=== PATIENT | male | born 1945 | race Caucasian/White ===

== ENCOUNTER 2018-05-31 08:39 | Observation (INO) | payer MEDICARE ==
--- NOTE | 2018-05-31 09:01 | ED ---
Abdominal Pain/Male - HPI Summary HPI Summary: A 72 y/o M presents to ED with c/o abd pain onset 00:00 this date. Associated sx : nausea/diarrhea, chills, weakness, fatigue. Denies vomiting, bloody stool, back pain, flank pain, groin pain, cough, rhinorrhea, CP, cough, myalgia. Pt thinks it may be a kidney stone as the sx feel similar to his previous one. He goes to the pain clinic for his back for Tramadol injections and RFA. He had an annual physical in March 2018. 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 Pt states he was recently on a college campus in an elevator with someone who was coughing. - History of Current Complaint Chief Complaint: EDNauseaVomitDiarrh Stated Complaint: NAUSEA/DIARRHEA/CHILLS Time Seen by Provider: 05/31/18 08:58 Hx Obtained From: Patient, Family/Rn Patient Services - present Onset/Duration: Lasting Hours, Still Present Timing: Constant Severity Initially: Moderate Severity Currently: Moderate Pain Intensity: 6 Pain Scale Used: 0-10 Numeric Location: Diffuse Associated Signs And Symptoms: Positive: Nausea, Diarrhea, Other - pos: chills, weakness, fatigue. neg: flank pain, groin pain, myalgia. Negative: Fever, Cough , Chest Pain, Back Pain, Blood in Stool, Vomiting - Allergies/Home Medications Allergies/Adverse Reactions: Allergies Allergy/AdvReac Type Severity Reaction Status Date / Time No Known Allergies Allergy Verified 05/31/18 08:46 PMH/Surg Hx/FS Hx/Imm Hx Previously Healthy: No Endocrine/Hematology History: Denies: Hx Diabetes Cardiovascular History: Denies: Hx Hypertension, Hx Pacemaker/ICD History: Reports: Hx Kidney Stones - september 2015 Denies: Hx Renal Disease Musculoskeletal History: Reports: Hx Arthritis, Hx Back Problems Sensory History: Reports: Hx Contacts or Glasses - glasses Denies: Hx Hearing Aid Opthamlomology History: Reports: Hx Contacts or Glasses - glasses Neurological History: Reports: Other Neuro Impairments/Disorders - PAIN CLINIC PATIENT Psychiatric History: Denies: Hx Panic Disorder - Surgical History Surgery Procedure, Year, and Place: TONSILECTOMY. VASECTOMY. PLANTAR FASCIOTOMY Infectious Disease History: No Infectious Disease History: Denies: Traveled Outside the [place] in Last 30 Days - Family History Known Family History: Positive: Diabetes - COUSIN - TYPE I Negative: Cardiac Disease, Hypertension - Social History Occupation: Retired Lives: With Family Alcohol Use: Daily Alcohol Amount: 2 beer/wine/liquor Substance Use Type: Reports: None Smoking Status (MU): Never Smoked Tobacco Review of Systems Positive: Chills, Fatigue. Negative: Fever Negative: Erythema Negative: Sore Throat, Nasal Discharge Negative: Chest Pain Negative: Shortness Of Breath, Cough Positive: Abdominal Pain, Diarrhea, Nausea. Negative: Vomiting, Other - neg: bloody stool Negative: dysuria, flank pain, hematuria, other - neg: groin pain Negative: Myalgia, Edema, Other - neg: back pain Negative: Rash Neurological: Other - neg: dizziness Positive: Weakness All Other Systems Reviewed And Are Negative: Yes Physical Exam - Summary Physical Exam Summary: Constitutional: Well-developed, Well-nourished, Alert. (-) Distressed Skin: Warm, Dry HENT: Normocephalic; Atraumatic Eyes: Conjunctiva normal Neck: Musculoskeletal ROM normal neck. (-) JVD, (-) Stridor, (-) Tracheal deviation Cardio: Rhythm regular, rate normal, Heart sounds normal; Intact distal pulses; The pedal pulses are 2+ and symmetric. Radial pulses are 2+ and symmetric. (-) Murmur Pulmonary/Chest wall: Effort normal. (-) Respiratory distress, (-) Wheezes, (-) Rales Abd: Soft, (-) epigastric tenderness, (-) Distension, (-) Guarding, (-) Rebound Musculoskeletal: (-) Edema Lymph: (-) Cervical adenopathy Neuro: Alert, Oriented x3 Psych: Mood and affect Normal Triage Information Reviewed: Yes Vital Signs On Initial Exam: Initial Vitals Temp Pulse Resp BP Pulse Ox 97.6 F 73 19 140/82 98 05/31/18 08:42 05/31/18 08:42 05/31/18 08:42 05/31/18 08:42 05/31/18 08:42 Vital Signs Reviewed: Yes Diagnostics - Vital Signs Vital Signs Temp Pulse Resp BP Pulse Ox 05/31/18 08:56 66 136/77 97 05/31/18 08:42 97.6 F 73 19 140/82 98 - Laboratory Result Diagrams: 05/31/18 09:14 05/31/18 09:14 Lab Statement: Any lab studies that have been ordered have been reviewed, and results considered in the medical decision making process. - EKG 0906 Cardiac Rate: NL - 69 bpm EKG Rhythm: Sinus Rhythm Summary of EKG Findings: NO STEMI Re-Evaluation - Re-Evaluation 1 Re-Evaluation Time: 12:21 Change: Worse Comment: Pt is still complaining of nausea and abd pain described as cramping. Repeat abd exam found no tenderness. 2 Re-Evaluation Time: 13:40 Change: Unchanged Comment: Patient is still feeling nauseated and appears uncomfortable. Abd is still non-tender to palpation. Offered observation; will reassess in 20 minutes. 3 Re-Evaluation Time: 14:25 Change: Unchanged Comment: He is still nauseated and having abd cramping. He is interested in admission. Abdominal Pain Fem Course/Dx - Course Course Of Treatment: Pt is a 72 y/o M presenting with c/o abd pain onset 00:00 this date. Associated sx: nausea/diarrhea, chills, weakness, fatigue. Denies vomiting, bloody stool, back pain, flank pain, groin pain, cough, rhinorrhea, CP , cough, myalgia. Lab work is unremarkable except elevated glucose and BUN/C ratio. UA results show 2+ ketones ansd ascorbic acid present. After multiple re-evals, patient's nausea and abd cramping have not subsided. Consulted with Dr. Handley, hospitalist, who will admit patient. - Diagnoses Provider Diagnoses: Gastroenteritis, Intractable vomiting - Provider Notifications Discussed Care Of Patient With: Jw Handley - hospitalist Time Discussed With Above Provider: 14:53 Instructed by Provider To: Admit As Inpatient Discharge - Sign-Out/Discharge Documenting (check all that apply): Patient Departure - ADMIT Patient Received Moderate/Deep Sedation with Procedure: No - Discharge Plan Condition: Stable Disposition: ADMITTED TO [facility] Referrals: Ravin Chase MD [Medical Doctor] - Additional Instructions: Return to the emergency department for changing or worsening symptoms. - Attestation Statements Document Initiated by Scribe: Yes Documenting Scribe: So[facility]pakog [facility] Provider For Whom Scribe is Documenting (Include Credential): Dr. Edenilson Fang MD Scribe Attestation: I, Esme Rosario, scribed for Dr. Edenilson Fang MD on 05/31/18 at 1453. Status of Scribe Document: Ready
--- OUTSIDE RECORDS SUMMARY | 2018-05-31 09:07 | XMS REPORT | Continuity of Care Document ---
:1945 External Reference #:[id number] Author Name Fatimah Sy Care Team Providers Name Role Phone Fredis Garces MD Care Team Information [employer] Unavailable Brian Dow III, MD Primary Care Physician Unavailable Payers Type Date Identification Numbers Payment Provider Subscriber Policy Number: [id number] [employer] Marcelina Kendall Group Number: [id number] [id number] PayID: [id number] [place] [address] Advance Directives Description No Information Available Problems Date Description Provider Status Onset: 03/17/2017 Lumbar arthritis Ravin Chase M.D.,FACP Active Onset: 03/17/2017 Lumbago with sciatica Ravin Chase M.D.,FACP Active Onset: 03/17/2017 Macular drusen Ravin Chase M.D.,FACP Active Onset: 03/17/2017 Kidney stone Ravin Chase M.D.,FACP Active Onset: 03/17/2017 Acquired thrombocytopenia Ravin Chase M.D.,FACP Active Note: mild Onset: 03/29/2017 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.,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 Family History Date Family Member(s) Problem(s) Comments Father due to Pulmonary fibrosis () Mother due to Endometrial Cancer () - Age 69 Siblings 1 Siblings Healthy Age 73 Social History Type Date Description Comments Sex Unknown Marital Status Occupation Retired Tobacco Use Start: Unknown Never Smoked Cigarettes Smoking Status Reviewed: 05/03/18 Never Smoked Cigarettes ETOH Use 03/29/2017 Consumed 2 beers per day in the past Tobacco Use Start: Unknown Patient has never smoked Recreational Drug Use Denies Drug Use Allergies, Adverse Reactions, Alerts Description No Known Drug Allergies Medications Medication Date Status Form Strength Qnty SIG Indications Ordering Provider Vitamin B 08/28 Active Lozenges 250mcg 100un by mouth its every day Ajith Chase M.D.,FACP Shingrix 08/19 Active Suspension 50mcg 2unit 0.5 Rec s milliliters Ajith Chase, intramuscula M.DJcarlos,FACP r now and 2-3 months later repeat BD 3ML Luer-Siobhan 03/29 Active Misc 23G X 1" 10uni use monthly Syringe/23G X /2016 3 ML ts for B12 Ajith Chase, 1" M.D.,FACP Tramadol HCL 03/17 Active Tablets 50mg 42tab four times a s day as Ajith Chase, needed M.DJcarlos,FACP Areds Active 2 tabs daily Unknown /0000 Ibuprofen 00 Active Capsules 200mg as needed Unknown /0000 Cyanocobalamin 03/29 Hx Solution 1000mcg/M 10uni 1 L ts milliliters Ajith Chase, - intramuscula M.DJcarlos,FACP 08/28 r [id number] Diclofenac 00/ Hx Tablets DR 75mg daily Unknown Sodium /0000 - 03/17 Aspirin Adult [address] 81mg take one Unknown Low Strength /0000 tablet by - mouth daily. 03/17 Vitamin D3 Hx Capsules 4000Unit 1 by mouth Unknown Maximum /0000 every day Strength - 03/17 Medications Administered in Office Medication Date Status Form Strength Qnty SIG Indications Ordering Provider B-12 Injection Administered Injection Nurse Visit 018 [place] B-12 Injection Administered Injection Nurse Visit 018 [place] B-12 Injection Administered Injection Nurse Visit 018 [place] B12 Provided Administered Injection Nurse Visit By Patient 018 [place] B12 Provided Administered Injection Nurse Visit By Patient 018 [place] B12 Provided Administered Injection Nurse Visit By Patient 017 [place] Immunizations CPT Code Status Date Vaccine Reaction Lot # [id number] Given 02/13/2018 Influenza Virus Vaccine, Quadrivalent, Split, Preservative Free 42049 Given 01/25/2018 Zoster (Shingles) Vaccine (HZV), Recombinant, Subunit, Adjuvanted 33748 Given 08/28/2017 Zoster (Shingles) Vaccine (HZV), Recombinant, Subunit, Adjuvanted 17219 Given 03/17/2017 Influenza Virus Vaccine, Quadrivalent, Split, Preservative Free 99371 Given 03/17/2017 Pneumococcal Conjugate no reaction, pt [id number] Vaccine 13 Valent For tolerated well Intramuscular Use 17452 Given 08/08/2013 Pneumonia Vaccine 97701 Given 04/17/2012 Tetanus And Diptheria (Td) For Adult Use Preservative Free 53203 Given 03/17/2009 Zoster (Zostavax) Vital Signs Date Vital Result Comment 05/03/2018 2:29pm Height 69 inches 5'9" Weight 182.38 lb Heart Rate 72 /min BP Systolic Sitting 118 mmHg reg adult cuff left arm BP Diastolic Sitting 88 mmHg reg adult cuff left arm Respiratory Rate 16 /min O2 % BldC Oximetry 98 % at rest on room air BMI (Body Mass Index) 26.9 kg/m2 03/17/2017 10:39am Height 69 inches 5'9" Weight 182.00 lb Heart Rate 69 /min BP Systolic Sitting 122 mmHg BP Diastolic Sitting 70 mmHg Body Temperature 97.0 F O2 % BldC Oximetry 97 % BMI (Body Mass Index) 26.9 kg/m2 02/23/2016 11:29am Height 69 inches 5'9" Weight 178.00 lb Heart Rate 66 /min BP Systolic 110 mmHg BP Diastolic 76 mmHg Respiratory Rate 16 /min Body Temperature 97.7 F BMI (Body Mass Index) 26.3 kg/m2 Results Test Date Facility Test Result H/L Range Note Lipid Profile 04/25/2018 [facility] Triglycerides 77 mg/dL 1 (Trig/Chol/HDL) [address] [place] [address] [phone] Cholesterol 212 mg/dL 2 HDL Cholesterol 55.0 mg/dL 3 LDL Cholesterol 142 mg/dL 4 Laboratory test 04/25/2018 [facility] Vitamin B12 668 pg/mL N 180-914 [address] [place] [address] [phone] CBC Auto Diff 04/25/2018 [facility] White Blood 2.9 Low 3.5- 10.[address] Count 10^3/[place] [address] [phone] Red Blood Count 5.42 10^6/uL High 4.00-5.40 Hemoglobin 16.1 g/dL N 14.0-18.0 Hematocrit 48 % N 42-52 Mean Corpuscular Volume 88 fL N 80-94 Mean Corpuscular Hemoglobin 30 pg N 27-31 Mean Corpuscular HGB Conc 34 g/dL N 31-36 Red Cell Distribution Width 17 % High 10.5-15 Platelet Count 148 10^3/uL Low 150-450 Mean Platelet Volume 7.3 fL Low 7.4-10.4 Abs Neutrophils 1.3 10^3/uL Low 1.5-7.7 Abs Lymphocytes 0.8 10^3/uL Low 1.0-4.8 Abs Monocytes 0.3 10^3/uL N 0-0.8 Abs Eosinophils 0.3 10^3/uL N 0-0.6 Abs Basophils 0 10^3/uL N 0-0.2 Abs Nucleated RBC 0 10^3/uL Granulocyte % 46.6 % Lymphocyte % 27.8 % Monocyte % 12.0 % Eosinophil % 12.0 % Basophil % 1.6 % Nucleated Red Blood Cells % 0.2 Laboratory test 04/25/2018 [facility] Glucose 100 mg/dL N 70- [address] [place] [address] [phone] Laboratory test 02/01/2018 [facility] Surgical SEE RESULT 6 , [address] [place] [address] [phone] Occult 05/04/2017 Senior Web Developer In House Occult Blood - NEG Blood,Stool (3 Stool Spec) Lipid Profile 03/24/2017 [facility] Triglycerides 65 mg/dL 8 (Trig/Chol/HDL) [address] [place] [address] [phone] Cholesterol 206 mg/dL 9 HDL Cholesterol 50.9 mg/dL 10 LDL Cholesterol 142 mg/dL 11 CBC Auto 03/24/2017 [facility] White Blood 3.3 10^3/uL Low 3.5 -10.[address] [place] [address] [phone] Red Blood Count 4.84 10^6/uL N 4.0-5.4 Hemoglobin 13.3 g/dL Low 14.0-18.0 Hematocrit 40 % Low 42-52 Mean Corpuscular Volume 83 fL N 80-94 Mean Corpuscular Hemoglobin 28 pg N 27-31 Mean Corpuscular HGB Conc 33 g/dL N 31-36 Red Cell Distribution Width 17 % High 10.5-15 Platelet Count 155 10^3/uL N 150-450 Mean Platelet Volume 7 um3 Low 7.4-10.4 Abs Neutrophils 1.3 10^3/uL Low 1.5-7.7 Abs Lymphocytes 1.0 10^3/uL N 1.0-4.8 Abs Monocytes 0.5 10^3/uL N 0-0.8 Abs Eosinophils 0.4 10^3/uL N 0-0.6 Abs Basophils 0.1 10^3/uL N 0-0.2 Abs Nucleated RBC 0 10^3/uL Granulocyte % 41.0 % N 38-83 Lymphocyte % 31.8 % N 25-47 Monocyte % 13.8 % High 1-9 Eosinophil % 11.7 % High 0-6 Basophil % 1.7 % N 0-2 Nucleated Red Blood Cells % 0.1 Iron & Iron Binding 03/24/2017 [facility] Iron 37 g/dL Low 50-212 [address] [place] [address] [phone] Unsaturated Iron Binding 358 g/dL Total Iron Binding Capacity 395 g/dL N 250-450 % Iron Saturation 9 % Low 15-55 Laboratory test 03/24/2017 [facility] Vitamin B12 115 pg/mL Low 180-914 12 finding [address] [place] [address] [phone] Basic Metabolic 03/24/2017 [facility] Sodium 140 mmol/L N 133- 145 Panel [address] [place] [address] [phone] Potassium 4.3 mmol/L N 3.5-5.0 Chloride 105 mmol/L N 101-111 Co2 Carbon Dioxide 31 mmol/L N 22-32 Anion Gap 4 mmol/L N 2-11 Glucose 99 mg/dL N 70-100 Blood Urea Nitrogen 16 mg/dL N 6-24 Creatinine 0.93 mg/dL N 0.67-1.17 BUN/Creatinine Ratio 17.2 N 8-20 Calcium 9.3 mg/dL N 8.6-10.3 Egfr Non- 80.6 >60 Egfr 103.6 >60 13 1 Desirable: <150 Borderline High: 150-199 High: 200-499 Very High: >500 2 Desirable: <200 Borderline High: 200-239 High: >239 3 Low: <40 Desirable: 40-60 High: >60 4 Desirable: <100 Near Optimal: 100-129 Borderline High: 130-159 High: 160-189 Very High: >189 5 Normal Range 180 to 914 Indeterminate Range 145 to 180 Deficient Range <145 6 [id number] SEE RESULT BELOW Name: MARCELINA KENDALL : [address]: Ana Mckeon MD Acct: [id number] Unit: [id number] AGE: 72 Location: [facility] Re02/01/18 SEX: M Status: DEP REF SPEC: [id number] ELLIE: 02/01/189680 [facility] DR: Ana Garcia MD REQ: [id number] RECD: 02/01/185625 STATUS: ADRIANNA MEIER DR: Ravin Chase MD _ ORDERED: LEVEL 4/3 COMMENTS: [id number] FINAL DIAGNOSIS 1. Colon, ascending, biopsy: -- Tubular adenoma. -- No high grade dysplasia or malignancy. 2. Colon, sigmoid, biopsy: -- Tubular adenoma. -- No high grade dysplasia or malignancy. 3. Colon, rectum, biopsy: -- Hyperplastic polyp. CLINICAL HISTORY Screening/Surveillance for malignancy in asymptomatic patient POST-OPERATIVE DIAGNOSIS Colonoscopy: ascending colon polyp - 3 mm jumbo; sigmoid polyp 6 mm cold - snare; mild oozing status post clip; moderate diverticulosis - sigmoid; 3 mm rectal polyp - jumbo; internal hemorrhoid GROSS DESCRIPTION 1. The specimen is received in formalin labeled, Biopsy Ascending Colon Polyp, and consists of a 0.4 x 0.3 x 0.3 cm french-pink polypoid soft tissue fragments, which is entirely submitted in one cassette. 2. The specimen is received in formalin labeled, Sigmoid Colon Polyp, and consists of a 0.6 x 0.3 x 0.3 cm french-pink irregular to polypoid soft tissue fragment, which is entirely CONTINUED ON NEXT PAGE DEPARTMENT OF PATHOLOGY, [address] [place] [address] Amaury Stokes M.D. Director [facility] # [id number] RUN DATE: 02/02/18 [facility] LIVE PAGE 2 Patient: MARCELINA KENDALL [id number] (Continued) GROSS DESCRIPTION (Continued) GROSS DESCRIPTION (Continued) submitted in one cassette. 3. The specimen is received in formalin labeled, Biopsy Rectal Polyp, and consists of a 0.5 x 0.4 x 0.2 cm speckled to french-pink irregular to polypoid soft tissue fragment, which is entirely submitted in one cassette. Signed by and Reported on: Fern Ingram MD 02/02/18 1032 END OF REPORT DEPARTMENT OF PATHOLOGY, [address] [place] [address] Amaury Stokes M.D. Director [facility] # [id number] 8 Desirable: <150 Borderline High: 150-199 High: 200-499 Very High: >500 9 Desirable: <200 Borderline High: 200-239 High: >239 10 Low: <40 Desirable: 40-60 High: >60 11 Desirable: <100 Near Optimal: 100-129 Borderline High: 130-159 High: 160-189 Very High: >189 12 Normal Range 180 to 914 Indeterminate Range 145 to 180 Deficient Range <145 13 Because ethnic data is not always readily available, this report includes an eGFR for both -Americans and non- Americans. The National Kidney Disease Education Program (NKDEP) does not endorse the use of the MDRD equation for patients that are not between the ages of 18 and 70, are , have extremes of body size, muscle mass, or nutritional status, or are non- or non-. According to the National Kidney Foundation, irrespective of diagnosis, the stage of the disease is based on the level of kidney function: Stage Description GFR(mL/min/1.73 m(2)) 1 Kidney damage with normal or decreased GFR 90 2 Kidney damage with mild decrease in GFR 60-89 3 Moderate decrease in GFR 30-59 4 Severe decrease in GFR 15-29 5 Kidney failure <15 (or dialysis) Procedures Date Code Description Status 02/01/2018 [id number] Colonoscopy Completed 08/28/2017 48942 Admin Of Inj Completed 07/27/2017 03603 Admin Of Inj Completed 06/23/2017 81773 Admin Of Inj Completed 05/26/2017 05006 Admin Of Inj Completed 04/28/2017 59766 Admin Of Inj Completed 03/31/2017 13633 Admin Of Inj Completed Encounters Type Date Location Provider Dx Diagnosis Office Visit 03/17/2017 [facility] Ravin Canseco M54.41 Lumbago with 11:00a Medicine - Saskia Chase M.D.,FACP sciatica, right Rd side Z12.11 Encounter for screening for malignant neoplasm of colon D64.9 Anemia, unspecified Z23 Encounter for immunization Office Visit 02/23/2016 11:30a [facility] Silverio Betancur C44.92 [facility] Lew Vivar carcinoma of skin, unspecified Plan of Treatment Future Appointment(s):05/06/2019 1:20 pm - Brian Dow M.D. at [facility] - Bswfxixuq59/17/2019 - Brian Dow M.D.Z00.00 Encounter for general adult medical examination without abnoD51.9 Vitamin B12 deficiency anemia, tjoewqsddwtC79.41 Lumbago with sciatica, right sideD64.9 Anemia, unspecified
[2018-05-31] MEDS: NS 0.9% 1000 ML** 2,000 ML IV ONE ×2 (09:14→09:15)
[2018-05-31 09:28] LABS: ABS Basophils 0.1 10^3/ul (0-0.2); ABS Eosinophils 0 10^3/ul (0-0.6); ABS Lymphocytes 0.3 10^3/ul (1.0-4.8); ABS Monocytes 0.3 10^3/ul (0-0.8); ABS Neutrophils 4.7 10^3/ul (1.5-7.7); ABS Nucleated RBC 0 10^3/ul; Eosinophil % 0.2 %; Hematocrit 50 % (42-52); Lymphocyte % 5.2 %; Mean Corpuscular HGB Conc 34 g/dl (31-36); Mean Corpuscular Hemoglobin 31 pg (27-31); Mean Corpuscular Volume 91 fL (80-94); Mean Platelet Volume 6.9 fL (7.4-10.4); Nucleated Red Blood Cells % 0; Platelet Count 156 10^3/ul (150-450); Red Blood Count 5.53 10^6/ul (4.00-5.40); Red Cell Distribution Width 15 % (10.5-15); White Blood Count 5.3 10^3/ul (3.5-10.8)
[2018-05-31 09:47] LABS: ALT 16 U/L (7-52); AST 16 U/L (13-39); Albumin 4.4 g/dL (3.2-5.2); Albumin/Globulin Ratio 1.6 (1-3); Alkaline Phosphatase 65 U/L (34-104); Anion Gap 9 mmol/L (2-11); BUN/Creatinine Ratio 23.3 (8-20); Blood Urea Nitrogen 20 mg/dL (6-24); C Reactive Protein < 1.00 mg/L (<8.01); CO2 Carbon Dioxide 26 mmol/L (22-32); Calcium 9.7 mg/dL (8.6-10.3); Chloride 105 mmol/L (101-111); EGFR African American 106.4 (>60); EGFR Non-African American 87.9 (>60); Globulin 2.8 g/dL (2-4); Glucose 121 mg/dL (70-100); Sodium 140 mmol/L (135-145); Total Protein 7.2 g/dL (6.4-8.9)
[2018-05-31] MEDS ORDERED: Ondansetron INJ* 2 MG/ML VIAL IV ONE ×2 (09:54→14:34)
[2018-05-31] MEDS ORDERED: Ondansetron INJ* 2 MG/ML VIAL ONE (09:56)
[2018-05-31 12:18] LABS: Urine Appearance Clear; Urine Bilirubin Negative (Negative); Urine Blood Negative (Negative); Urine Color Yellow; Urine Glucose Negative (Negative); Urine Ketones 2+ (Negative); Urine Nitrite Negative (Negative); Urine Protein Negative (Negative); Urine Urobilinogen Negative (Negative)
[2018-05-31] MEDS ORDERED: Dicyclomine CAP* 10 MG PO ONE (12:24)
[2018-05-31] MEDS ORDERED: Ondansetron ODT TAB* 4 MG SL ONE (12:24)
[2018-05-31] MEDS ORDERED: NS 0.9% 1000 ML** 1,000 ML IV ONE (14:33)
[2018-05-31] MEDS ORDERED: Iohexol 300* (CONTRAST) 10 ML SDV IV ONE (16:12)
[2018-05-31 16:19] LABS: Influenza A Molecular NEGATIVE (Negative); Influenza B Molecular NEGATIVE (Negative)
[2018-05-31] MEDS ORDERED: Acetaminophen TAB* 325 MG PO PRN (16:26)
[2018-05-31] MEDS: Ondansetron INJ* 2 MG/ML VIAL IV PRN (18:50)
[2018-05-31] MEDS: NS 0.9% 1000 ML** 1,000 ML IV SCH (18:50)
[2018-05-31] MEDS ORDERED: Trimethobenzamide IM* 100 MG/ML 2 ml VIAL IM PRN (19:39)
--- NOTE | 2018-05-31 20:15 | HP ---
CC: Dr. Dow * HISTORY AND PHYSICAL: DATE OF ADMISSION: 05/31/18 PROVIDER: Moises Garrison NP PRIMARY CARE PROVIDER: Dr. Dow. ATTENDING PHYSICIAN WHILE IN THE HOSPITAL: Dr. Jw Handley * (dictated by Moises Garrison NP). CHIEF COMPLAINT: Nausea, abdominal pain, diarrhea. HISTORY OF PRESENT ILLNESS: Mr. Rodriguez is a 72-year-old male with a past medical history significant for arthritis who reports that approximately midnight, he started having stomach cramping and dry heaves, which was preceded by chills, nausea, and 2 episodes of diarrhea. The patient reports that he has cramping in his abdomen that is rated at 8. He denies any other symptoms. Denies fevers. Does report chills. Denies any chest pain, edema, cough, hemoptysis, or shortness of breath. He does report nausea, dry heaves, diarrhea , and abdominal pain that is cramping in sensation in his lower abdomen. He denies any gross hematuria, dysuria, focal weakness, or sensory loss. Denies any visual complaints, dysphagia, arthralgias, myalgias, rashes, lesions, psychosis, or anxiety. The patient does report that he ate a Caesar salad from [employer] last evening and reports that he has had episodes in the past where he has eaten and the meal has not agreed with him. He reports he has a large bout of diarrhea and the abdominal pain subsides and then he is fine. He states that this episode of pain did not subside, so he presented to the emergency room for further evaluation. While in the emergency room, the patient had routine lab work drawn. He was given Zofran and IV fluids and continued to have nausea and abdominal pain. The patient then became febrile with a fever of 101.6. Due to his fever, abdominal pain, and nausea, we were asked to see and evaluate him for admission. The patient reports that at the [facility] there have been several students sick with gastroenteritis, but denies any close contact, exposure. PAST MEDICAL HISTORY: Significant for arthritis. PAST SURGICAL HISTORY: 1. Vasectomy. 2. Tonsillectomy. 3. Fasciotomy for fasciitis. HOME MEDICATIONS: 1. Vitamin B12. 2. Tramadol 50 mg p.o. daily. 3. AREDS 2 tabs p.o. daily. ALLERGIES: No known drug allergies. SOCIAL HISTORY: Denies any tobacco. Does report 2 drinks daily. Denies any illicit drug use. He is retired. He does work part-time at [employer]. Surrogate decision maker in the event he is unable to make his own decisions is his . He is a full code. REVIEW OF SYSTEMS: The patient does have a documented fever in the emergency room. He does report chills. Does report decreased appetite. Denies any chest pain or edema. Denies any cough, hemoptysis, or shortness of breath. He does report nausea, dry heaves, diarrhea, and cramping abdominal pain. Denies any hematuria, dysuria, focal weakness, sensory loss, dysphagia, arthralgias, myalgias, rashes, lesions, psychosis, or anxiety. PHYSICAL EXAMINATION GENERAL: At this time, Mr. Rodriguez is a 72-year-old male. He is alert and oriented, sitting on the stretcher in the emergency room. He does not appear to be in any acute distress. VITAL SIGNS: Blood pressure 112/74, heart rate 87, O2 saturation 98% on room air , respirations 15, temperature 101.6. HEENT: Head is atraumatic, normocephalic. Eyes: EOMs are intact. Sclerae anicteric and not pale. Oral mucosa appeared to be moist. NECK: Supple. LUNGS: Clear to auscultation bilaterally. No wheezes, rales, or rhonchi. CARDIAC: S1, S2. Regular rate and rhythm. ABDOMEN: Soft. He does have mild suprapubic tenderness with palpation. Bowel sounds are present x4. EXTREMITIES: Pedal pulses are +2 bilaterally. He is able to move all 4 extremities with 5/5 strength. NEUROLOGIC: He is awake, alert, oriented x3. Speech is clear. Thought process is intact. No gross focal deficits. SKIN: Intact. PSYCH: He is pleasant. He is alert and oriented x3. Cooperative. DIAGNOSTIC STUDIES/LAB DATA: WBCs are 5.3, RBCs 5.53, hemoglobin 17, hematocrit is 50, platelet count 156. Sodium 140, potassium 4.0, chloride 105, carbon dioxide is 26, anion gap was 9, BUN was 20, creatinine 0.86, glucose is 121. Lactic acid 1.2. Calcium 9.7. ASTs were 16, ALTs were 16. C-reactive protein was less than 1. Lipase was 17. Urine was within normal limits with the exception of urine ketones were 2+ and ascorbic acid was . Influenza A and B were negative. He had a chest x-ray, radiologist's impression: No evidence of acute cardiopulmonary disease. There is a small hiatal hernia. There was sigmoid colonic diverticulosis without evidence of acute diverticulitis. There is additional wall thickening in the descending colon without evidence of diverticula, may be partially related to underdistention, but cannot exclude nonspecific colitis. He had an electrocardiogram; he has no comparison, which shows sinus rhythm with a right bundle-branch block. ASSESSMENT AND PLAN: Mr. Rodriguez is a 72-year-old male with a past medical history significant for arthritis who presented to the emergency room with nausea, dry heaves, and abdominal pain since midnight with 2 episodes of diarrhea. He will be admitted under observation for: 1. Abdominal pain. I suspect this is related to viral gastroenteritis. The patient is febrile. He has had 2 episodes of diarrhea; no further episodes. He does have some lower abdominal cramping. We will continue to monitor him overnight. We will continue with IV hydration. He did receive a total of 3 L in the emergency room. He will have blood cultures. I will repeat a CBC and BMP in the a.m. He currently has an ESR that is currently pending. 2. Arthritis and chronic pain. Continue with his tramadol 1 tab p.o. daily as per home medications. 3. FEN: He can have a clear liquid diet. 4. Code status is full code. 5. DVT prophylaxis. I will place him on SCDs. TIME SPENT: Time spent on this admission was 60 minutes, greater than half the time was spent [id number] with the patient obtaining my history and physical, the other half of the time was spent going over my plan of care and implementing my plan of care. I have discussed this with my attending, Dr. Jw Handley, he is in agreement with my plan. MOISES GARRISON, CENTER REP [id number]/[facility] #: [id number] [facility] HEALTH PARTNERSGayatri
[2018-05-31] MEDS: ALPRAZolam TAB* 0.25 MG PO PRN (21:12)
[2018-06-01 02:37] LABS: Erythrocyte Sed Rate 2 mm/Hr (0-20)
[2018-06-01] MEDS: NS 0.9% 1000 ML** 1,000 ML IV SCH ×3 (04:43→15:58)
[2018-06-01] MEDS: traMADol TAB* 50 MG PO SCH (07:14)
[2018-06-01 07:24] LABS: ABS Basophils 0 10^3/ul (0-0.2); ABS Eosinophils 0 10^3/ul (0-0.6); ABS Lymphocytes 0.9 10^3/ul (1.0-4.8); ABS Monocytes 0.7 10^3/ul (0-0.8); ABS Neutrophils 4.6 10^3/ul (1.5-7.7); ABS Nucleated RBC 0 10^3/ul; Eosinophil % 0.8 %; Hematocrit 43 % (42-52); Hemoglobin 14.4 g/dl (14.0-18.0); Lymphocyte % 14.3 %; Mean Corpuscular HGB Conc 33 g/dl (31-36); Mean Corpuscular Hemoglobin 30 pg (27-31); Mean Corpuscular Volume 91 fL (80-94); Nucleated Red Blood Cells % 0.1; Platelet Count 117 10^3/ul (150-450); Red Blood Count 4.77 10^6/ul (4.00-5.40); Red Cell Distribution Width 16 % (10.5-15); White Blood Count 6.2 10^3/ul (3.5-10.8)
[2018-06-01 07:44] LABS: BUN/Creatinine Ratio 18.4 (8-20); Calcium 8.3 mg/dL (8.6-10.3); EGFR African American 122.7 (>60); EGFR Non-African American 101.4 (>60); Potassium 3.9 mmol/L (3.5-5.0)
[2018-06-01] MEDS: Ondansetron INJ* 2 MG/ML VIAL IV PRN (09:53)
[2018-06-01] MEDS ORDERED: PROCHLORPERAZINE INJ 5 MG/ML 2 ML VIAL IV PRN (10:21)
--- NOTE | 2018-06-01 10:29 | PN ---
Subjective Date of Service: 06/01/18 Interval History: Pt seen and examined. Meds and labs reviewed. CC: Nausea; had loose BM at 3AM x 1; poor appetite ROS: Denied KWON/dizziness, F/C, vomiting, CP, SOB, increased cough, sputum production, abd pain, constipation, dysuria, myalgias, arthralgias, throat pain , and new skin lesions. The rest of the 14 point ROS are unremarkable. PHYSICAL EXAM: GEN APPEARANCE: Awake, not in acute distress HEENT: NC/AT, PERRLA, moist oral mucosa, (-) throat erythema NECK: Soft, supple, (-) cervical LAD, (-)JVD HEART: S1S2 WNL, RRR, No MRG CHEST: CTA, BL, GAE, No W/R/R ABD: Soft, ND/NT, NABS 4x Q EXT: No C/C/E SKIN: Warm to touch PSYCH: No active psychosis, hallucinations, depression, SI/HI Objective Active Medications: Acetaminophen (Tylenol Tab*) 650 mg PO Q4H PRN PRN Reason: FEVER/PAIN Last Admin: 05/31/18 19:20 Dose: 650 mg Alprazolam (Xanax Tab*) 0.25 mg PO Q8H PRN PRN Reason: ANXIETY Last Admin: 05/31/18 21:12 Dose: 0.25 mg Sodium Chloride (Ns 0.9% 1000 Ml) 1,000 mls @ 100 mls/hr IV PER RATE [facility] Last Admin: 06/01/18 04:43 Dose: 100 mls/hr Ondansetron HCl (Zofran Inj*) 4 mg IV Q6H PRN PRN Reason: NAUSEA/VOMITING Last Admin: 06/01/18 09:53 Dose: 4 mg Prochlorperazine Edisylate (Compazine Inj*) 10 mg IV Q6H PRN PRN Reason: NAUSEA/VOMITING Tramadol HCl (Ultram*) 50 mg PO DAILY [facility] Last Admin: 06/01/18 07:14 Dose: Not Given Trimethobenzamide HCl (Tigan Im*) 200 mg IM Q8H PRN PRN Reason: NAUSEA Last Admin: 05/31/18 20:28 Dose: 200 mg Vital Signs - 8 hr 06/01/18 06/01/18 06/01/18 02:56 07:14 07:38 Temperature 98.0 F 98.2 F Pulse Rate 73 63 Respiratory 18 16 18 Rate Blood Pressure 104/58 129/69 (mmHg) O2 Sat by Pulse 95 99 Oximetry Oxygen Devices in Use Now: None Result Diagrams: 06/01/18 07:04 06/01/18 07:04 Microbiology and Other Data: Microbiology 05/31/18 15:35 Influenza Types A,B Antigen - Final Nasal Specimen received for Influenza A/B Molecular testing Assess/Plan/Problems-Billing Assessment: - Patient Problems (1) AGE (acute gastroenteritis) Current Visit: Yes Status: Acute Code(s): K52.9 - NONINFECTIVE GASTROENTERITIS AND COLITIS, UNSPECIFIED SNOMED Code(s): 40238026 Comment: -Continue clears and IVF -Pt mentions he still does not have appetite and frequently nauseated (2) Nausea Current Visit: Yes Status: Acute Code(s): R11.0 - NAUSEA SNOMED Code(s): 221293344 Comment: -Continue PRN Ondansetron and will add Compazine for breakthroughs -Continue PRN Trimethobanzamide (3) Anxiety Current Visit: Yes Status: Acute Code(s): F41.9 - ANXIETY DISORDER, UNSPECIFIED SNOMED Code(s): 20509217 Comment: -Continue PRN Alprazolam (4) DVT prophylaxis Current Visit: Yes Status: Acute Code(s): HLG8564 - SNOMED Code(s): 044381147 Comment: -Continue SCDs an encourage ambulation Status and Disposition: -For possible D/C in 1-2 days
[2018-06-01] MEDS: ALPRAZolam TAB* 0.25 MG PO PRN (20:01)
[2018-06-02] MEDS: NS 0.9% 1000 ML** 1,000 ML IV SCH (01:57)
[2018-06-02 07:29] LABS: Hematocrit 45 % (42-52); Hemoglobin 15.4 g/dl (14.0-18.0); Mean Corpuscular HGB Conc 34 g/dl (31-36); Mean Corpuscular Hemoglobin 31 pg (27-31); Mean Corpuscular Volume 91 fL (80-94); Mean Platelet Volume 6.6 fL (7.4-10.4); Platelet Count 116 10^3/ul (150-450); Red Blood Count 4.94 10^6/ul (4.00-5.40); Red Cell Distribution Width 15 % (10.5-15); White Blood Count 5.1 10^3/ul (3.5-10.8)
[2018-06-02 07:55] LABS: Albumin 3.6 g/dL (3.2-5.2); Albumin/Globulin Ratio 1.6 (1-3); BUN/Creatinine Ratio 14.1 (8-20); Calcium 8.5 mg/dL (8.6-10.3); EGFR African American 119.1 (>60); EGFR Non-African American 98.4 (>60); Globulin 2.3 g/dL (2-4); Potassium 3.8 mmol/L (3.5-5.0); Total Bilirubin 0.6 mg/dL (0.2-1.0); Total Protein 5.9 g/dL (6.4-8.9)
[2018-06-02] MEDS: traMADol TAB* 50 MG PO SCH (08:25)
[2018-06-02 08:26] VITALS: BP 120/70
[2018-06-02] MEDS ORDERED: Potassium Phosphate IV* 15 MMOLE in NS 0.9% 250 ML* 250 ML IVPB ONE (10:00)
[2018-06-02] MEDS ORDERED: Potassium & Sodium Phos 250MG* = 1 PACKET PO STA (11:22)
--- NOTE | 2018-06-02 14:30 | DS ---
CC: Dr. Edenilson Fang; Dr. Brian Dow DISCHARGE SUMMARY: DATE OF ADMISSION: DATE OF DISCHARGE: 06/02/18 CONDITION: Good. DISPOSITION: Home. DISCHARGE DIAGNOSES: Are as follows: 1. Acute gastroenteritis, resolved. 2. Nausea, due to above, resolved. 3. Hiatal hernia, small incidental finding on CT. 4. Chronic diverticulosis, incidental finding; no evidence of diverticulitis. DISCHARGE MEDICATIONS: Are as follows: 1. Tramadol 50 mg p.o. daily. 2. AREDS 2 tabs p.o. daily. 3. Cyanocobalamin 500 mcg p.o. daily. 4. Ondansetron 8 mg p.o. q.6 p.r.n. HISTORY OF PRESENT ILLNESS/HOSPITAL COURSE: The patient is a 72-year-old gentleman with a history of arthritis who approximately on the midnight of his admission started having some stomach c ramping and dry heaves which was proceeded by chills, nausea, and 2 episodes of diarrhea. He reports that the cramping in his abdomen is rated as 8 and was subsequently found to have viral gastroenteri tis. Although stool studies have been ordered, unfortunately the patient has not produced loose bowel movements during his stay, however, was having some significant abdominal pain and nausea that kept him in the hospital. His diet was then subsequently advanced to low residue diet, which he has thalia ated today as well as his breakfast, and therefore, we will discharge patient as improved and as reso lved gastroenteritis. He had been advised to follow up and/or call his PCP within 3 days post discharge. He was advised dayo t if his symptoms resume or develop new ones or feel unwell for any reason to call his PCP first. If his PCP cannot entertain him due to scheduling issues alone, he is to call [facility] if th e issues considered nonemergent. He was advised to call my office regarding any questions, concerns, or further clarifications regarding his discharge plans and prescriptions, and he was also advised t o take his medications as prescribed. REVIEW OF SYSTEMS: The patient currently denies any headaches, dizziness, fevers, chills , nausea, v omiting, chest pain, shortness of breath, increased coughing or sputum production, abdominal pain, di arrhea, constipation, pain and/or increased frequency in urination, myalgias or arthralgias. Negativ e for throat pain or erythema. The rest of the 14-point review of systems are otherwise unremarkable . PHYSICAL EXAMINATION: Shows the most recent vital signs of records with blood pressure of 120/70, 66 beats per minute heart rate, 19 per minute respiratory rate, saturating at 97% on room air. General Appearance: The patient is awake, alert, and oriented x3, not in any acute distress. HEENT: Normo cephalic and atraumatic. PERRLA. Extraocular muscles are intact. Negative for icterus. Moist oral mucosa. Negative throat erythema. Neck is soft, supple, with no cervical lymphadenopathy. No JVD. H eart: S1, S2 within normal limits. Regular rate and rhythm. No murmurs, rubs, or gallops. Chest: Clear to auscultation bilaterally. Good air entry. No wheezes, rales, or rhonchi. Abdomen is soft , nondistended, nontender. Normoactive bowel sounds x4 quadrants. Extremities: No cyanosis, clubbin g or edema. Psychiatric: No active psychosis, depression, suicidal or homicidal ideations. Skin is warm to touch. TIME SPENT: The total time spent evaluating the patient, reviewing pertinent data, and appropriate d ocumentation is 45 minutes. [id number]/[facility] #: [id number]
== END 2018-06-02 12:45 | disposition home or self-care (01) ==
LOC: ED 08:39 → MED 16:26
PROVIDERS: ADMIT Student in an Organized Health Care Education/Training Program; ATTEND Student in an Organized Health Care Education/Training Program
DX: K52.9 Noninfective gastroenteritis and colitis, unspecified (principal); R11.0 Nausea; K44.9 Diaphragmatic hernia without obstruction or gangrene; K57.90 Diverticulosis of intestine, part unspecified, without perforation or abscess without bleeding; R10.9 Unspecified abdominal pain; R19.7 Diarrhea, unspecified
CPT/HCPCS: 36415; 71046; 74177; 80048; 80053; 81003; 83605; 83690; 83735; 84100; 84484; 85025; 85027; 85652; 86140; 87040; 93005; 96372; 96374; 96375; 96376; 99283; A9270-GY; G0378; J0780; J2405; Q9967

== ENCOUNTER 2018-09-18 09:56 | Observation (INO) | payer MEDICARE ==
--- NOTE | 2018-09-18 10:51 | ED ---
GI/ HPI - HPI Summary HPI Summary: This pt is a 72 y[facility]o [facility] nausea, vomiting, diarrhea, and bloody stools since last night. Pt describes dark red blood in his stool last night. He reports abd pain and currently rates his pain 5 or 6 out of 10 in severity. Pt describes his abd pain as diffuse, "vague" and "throbbing." Yesterday he notes a subjective fever and chills. Today he denies any fever, chills, chest pain, SOB. Pt states he has had rectal bleeding noted on toilet paper in the past. Denies hx of UC. Denies taking NSAIDS. He denies anticoagulants use. Pt admits to drinking alcohol daily, 2 beers a day. Denies tobacco use. His last colonoscopy was done this past fall and was found to have polyps. These polyps were removed and was told to follow up in 5 years. PMHx: arthritis, for which he takes 150 mg Tramadol every morning. He did not take Tramadol today. - History of Current Complaint Chief Complaint: EDNauseaVomitDiarrh Time Seen by Provider: 09/18/18 10:37 Stated Complaint: VOMITING/DHIARREA/CRAMPS/WEAKNESS PER PT Hx Obtained From: Patient Onset/Duration: Started Days Ago - 1, Still Present Timing: Lasting Days - 1 Current Severity: Moderate Pain Intensity: 6 Location of Pain: Diffuse Pain Characteristics: Cramping, Other: - throbbing, vague Associated Signs and Symptoms: Positive: Nausea, Vomiting, Blood-Streaked Stool , Blood w/Stool, Diarrhea, Fever, Chills, Abdominal Pain. Negative: Chest Pain Aggravating Factor(s): Nothing Alleviating Factor(s): Nothing - Additional Pertinent History Primary Care Physician: [id number] - Allergy/Home Medications Allergies/Adverse Reactions: Allergies Allergy/AdvReac Type Severity Reaction Status Date / Time No Known Allergies Allergy Verified 09/18/18 10:05 Home Medications: Home Medications Loratadine [Claritin 10 MG CAP] 10 mg PO DAILY 09/18/18 [History Confirmed 09/18] PMH/Surg Hx/FS Hx/Imm Hx Endocrine/Hematology History: Denies: Hx Diabetes Cardiovascular History: Denies: Hx Hypertension, Hx Pacemaker/ICD History: Reports: Hx Kidney Stones - september 2015 Denies: Hx Renal Disease Musculoskeletal History: Reports: Hx Arthritis, Hx Back Problems Sensory History: Reports: Hx Contacts or Glasses - glasses Denies: Hx Hearing Aid Opthamlomology History: Reports: Hx Contacts or Glasses - glasses Neurological History: Reports: Other Neuro Impairments/Disorders - PAIN CLINIC PATIENT Psychiatric History: Denies: Hx Panic Disorder - Surgical History Surgery Procedure, Year, and Place: TONSILECTOMY. VASECTOMY. PLANTAR FASCIOTOMY Infectious Disease History: No Infectious Disease History: Denies: Traveled Outside the [place] in Last 30 Days - Family History Known Family History: Positive: Diabetes - COUSIN - TYPE I Negative: Cardiac Disease, Hypertension - Social History Alcohol Use: Daily Alcohol Amount: 2 beers daily Substance Use Type: Reports: None Smoking Status (MU): Never Smoked Tobacco Review of Systems Positive: Fever, Chills Negative: Chest Pain Negative: Shortness Of Breath Gastrointestinal: Other - POS: rectal bleeding Positive: Abdominal Pain, Vomiting, Diarrhea, Nausea All Other Systems Reviewed And Are Negative: Yes Physical Exam - Summary Physical Exam Summary: GENERAL: Patient is a well-developed and nourished male who is lying comfortable in the stretcher. Patient is not in any acute respiratory distress. HEAD AND FACE: Normocephalic EYES: PERRLA, EOMI x 2. EARS: Hearing grossly intact. MOUTH: Oropharynx within normal limits. NECK: Supple, trachea is midline, no adenopathy, no JVD, no carotid bruit. CHEST: Symmetric, no tenderness at palpation LUNGS: Clear to auscultation bilaterally. No wheezing or crackles. CVS: Regular rate and rhythm, S1 and S2 present, no murmurs or gallops appreciated. ABDOMEN: Soft, mild diffuse tenderness to palpation to the abdomen. Bowel sounds are normal. No abnormal abdominal pulsations. RECTAL EXAM: Gross blood per rectum. EXTREMITIES: Full ROM in all major joints, no edema, no cyanosis or clubbing. NEURO: Alert and oriented x 3. No acute neurological deficits. Speech is normal and follows commands. SKIN: Dry and warm Triage Information Reviewed: Yes Vital Signs On Initial Exam: Initial Vitals Temp Pulse Resp BP Pulse Ox 99 F 76 16 139/101 97 09/18/18 10:03 09/18/18 10:03 09/18/18 10:09/18/18 10:09/18/18 10:03 Vital Signs Reviewed: Yes Diagnostics - Vital Signs Vital Signs Temp Pulse Resp BP Pulse Ox 09/18/18 10:26 84 96 09/18/18 10:25 71 131/81 98 09/18/18 10:03 99 F 76 16 139/101 97 - Laboratory Result Diagrams: 09/18/18 11:49 09/18/18 11:49 Lab Statement: Any lab studies that have been ordered have been reviewed, and results considered in the medical decision making process. - CT Abdomen/Pelvis CT CT Interpretation Completed By: Radiologist Summary of CT Findings: IMPRESSION: 1. Circumferential thickening of the wall of the descending colon most consistent with colitis similar to the prior study. 2. Small infrarenal abdominal aortic aneurysm measuring 2.8 CM in maximum dimension, unchanged. 3. Hepatic steatosis. Dr. Anthony has reviewed this report. - EKG 11:10 Cardiac Rate: NL - at 68 bpm EKG Rhythm: Sinus Rhythm EKG Comparison: No Significant Change - Similar to prior EKG on 05/31/18. Summary of EKG Findings: RBBB. Left anterior fascicular block. GIGU Course/Dx - Course Assessment/Plan: Pt is a 72 y/o male presenting to [facility] c/o nausea, vomiting, diarrhea, abd pain, and bloody stools since last night. Denies hx of UC. Rectal exam shows gross blood per rectum. Labs remarkable for platelet count of 137, glucose of 129, magnesium of 1.7. Abdomen/Pelvis CT shows 1. Circumferential thickening of the wall of the descending colon most consistent with colitis similar to the prior study. 2. Small infrarenal abdominal aortic aneurysm measuring 2.8 CM in maximum dimension, unchanged. 3. Hepatic steatosis. Case discussed with Dr. Hodge, hospitalist, who accepted the pt for admission. I discussed results with patient. The patient agrees with this plan. Discussed with PABLO Rogers, who will come see the pt. - Diagnoses Provider Diagnoses: Colitis, Rectal bleeding - Physician Notifications Discussed Care Of Patient With: Haris Hodge - hospitalist Time Discussed With Above Provider: 14:14 Instructed by Provider To: Other - Discussed with Dr. Hodge hospitalist, who accepted the pt for admission. [14:28] Discussed with PABLO Rogers, who will come see the pt. Discharge - Sign-Out/Discharge Documenting (check all that apply): Patient Departure - Ad[place] to [facility] Patient Received Moderate/Deep Sedation with Procedure: No - Discharge Plan Condition: Stable Disposition: ADMITTED TO [facility] - Billing Disposition and Condition Condition: STABLE Disposition: Admitted to [facility] - Attestation Statements Document Initiated by Angela: Yes Documenting Scribe: Xuan Webb Provider For Whom Angela is Documenting (Include Credential): Julissa Anthony MD Scribe Attestation: Xuan Urban, scribed for Julissa Anthony MD on 09/18/18 at 1908. Scribe Documentation Reviewed: Yes Provider Attestation: The documentation as recorded by the Xuan davila accurately reflects the service I personally performed and the decisions made by , Julissa Anthony MD Status of Scribe Document: Viewed
[2018-09-18] MEDS ORDERED: Ondansetron INJ* 2 MG/ML VIAL IV ONE (10:59)
[2018-09-18] MEDS ORDERED: Morphine 4 MG/ML VIAL (1 ml) 4 MG/ML VIAL IV ONE (10:59)
[2018-09-18] MEDS ORDERED: NS 0.9% 1000 ML** 1,000 ML IV ONE (10:59)
[2018-09-18] MEDS ORDERED: Pantoprazole IV* 40 MG IV ONE (11:00)
[2018-09-18 12:02] LABS: ABS Lymphocytes 0.3 10^3/ul (1.0-4.8); ABS Monocytes 0.3 10^3/ul (0-0.8); ABS Neutrophils 5.2 10^3/ul (1.5-7.7); Eosinophil % 0.1 %; Hematocrit 46 % (42-52); Hemoglobin 15.5 g/dL (14.0-18.0); Mean Corpuscular HGB Conc 34 g/dL (31-36); Mean Corpuscular Hemoglobin 32 pg (27-31); Mean Corpuscular Volume 93 fL (80-94); Platelet Count 137 10^3/uL (150-450); Red Blood Count 4.93 10^6 /uL (4.18-5.48); Red Cell Distribution Width 14 % (10.5-15); White Blood Count 5.9 10^3/uL (3.5-10.8)
[2018-09-18 12:15] LABS: Activated Partial Thrombo Time 29.8 seconds (26.0-38.0); INR 1.06 (0.82-1.09)
[2018-09-18 12:33] LABS: Albumin/Globulin Ratio 1.7 (1-3); BUN/Creatinine Ratio 22.5 (8-20); C Reactive Protein 3.15 mg/L (<8.01); Calcium 9.1 mg/dL (8.6-10.3); EGFR African American 115.6 (>60); EGFR Non-African American 95.6 (>60); Globulin 2.4 g/dL (2-4); Magnesium 1.7 mg/dL (1.9-2.7); Potassium 4.2 mmol/L (3.5-5.0); Total Bilirubin 0.5 mg/dL (0.2-1.0); Total Protein 6.4 g/dL (6.4-8.9)
[2018-09-18] MEDS ORDERED: Iohexol 300* (CONTRAST) 10 ML SDV IV ONE (13:52)
[2018-09-18] MEDS ORDERED: Ciprofloxacin 400MG IVPREMIX(* 400 MG/200 ML BAG IVPB ONE (14:20)
[2018-09-18] MEDS ORDERED: metroNIDAZOLE IV 500 MG/100ML* 500 MG/100 ML BAG IVPB ONE (14:21)
[2018-09-18] MEDS ORDERED: Ondansetron INJ* 2 MG/ML VIAL IV PRN (16:08)
[2018-09-18] MEDS ORDERED: Acetaminophen TAB* 325 MG PO PRN (16:08)
[2018-09-18] MEDS ORDERED: traMADol TAB* 50 MG PO PRN (16:08)
[2018-09-18] MEDS ORDERED: Morphine INJ* 2 MG/ML 1 ML SYRINGE (TWO MG - NEW SYRINGE VERSION) IV PRN (16:12)
[2018-09-18] MEDS ORDERED: Magnesium Sulfate 2 GM IV* 2 GM/50 ML BAG IVPB ONE (16:17)
[2018-09-18] MEDS: Cetirizine* 10 MG TAB PO SCH (17:08)
[2018-09-18] MEDS: NS 0.9% 1000 ML** 1,000 ML IV SCH (18:08)
--- NOTE | 2018-09-18 18:52 | HP ---
CC: Dr. Brian Dow; Dr. Noe Pride * ADMISSION HISTORY AND PHYSICAL: DATE OF ADMISSION: 09/18/18 PRIMARY CARE PROVIDER: Dr. Brian Dow. MY ATTENDING WHILE IN THE HOSPITAL: Dr. Haris Hodge.* (DICTATED BY BOBBY HOWARD) CONSULTING RELAY DISPATCHER: Dr. Noe Pride. CHIEF COMPLAINT: Nausea, vomiting, diarrhea, bloody stools x12 hours. HISTORY OF PRESENT ILLNESS: Mr. Rodriguez is a 72-year-old male with past medical history significant only for arthritis and a recent hospitalization for what was presumed at that time to be gastroenteritis, who presented to the emergency department after he was feeling in his normal state of health going to bed last night, when he woke up at around midnight with cramping pain in his lower abdomen as well as fevers, chills, and sweats. The patient then went to the bathroom and had 2 "difficult" hard bowel movements and then had several episodes of bloody diarrhea with what he described to be a large amount of blood with associated nausea and vomiting. The patient states his most recent bowel movement was around 3 a.m. and that he has abdominal pain since that time. The patient states that besides the blood in his stool, this is very similar to what happened in May. The patient has history of approximately 6 months having 1 episode of waking up in the middle of the night for fecal urgency and having a large amount of bloody bowel movement, but again this only happens about every 6 months. The patient has no history of inflammatory bowel disease. The patient takes no NSAIDs. The patient's only prescribed medication is tramadol. The patient has used no uggr-ial-[id number] painkillers. The patient ate nothing out of the ordinary, has no recent changes in his meds. No exposure to people with gastroenteritis and no exposure to livestock. No camping, no recent travel. No excessive exercise. The patient's appetite has been good. The patient does not feel dehydrated. The patient has had a cold 1 week ago, but this entirely resolved by this time. The patient in the emergency department was afebrile, non-tachycardic, had normal blood pressure. The patient's hemoglobin was 15.5. The patient did not have any more bloody stools while in the emergency department; however, on his abdomen and pelvis CT , it was shown that he had colitis, which was possibly also present on his CT scan from May. Due to concern for GI bleeding, we were asked to evaluate the patient for admission to the hospital. PAST MEDICAL HISTORY: Arthritis; chronic pain; recent admission for nausea, vomiting and diarrhea with presumed gastroenteritis. PAST SURGICAL HISTORY: Vasectomy, tonsillectomy, fasciotomy of the bilateral feet. MEDICATIONS: 1. Vitamin B12 500 mcg p.o. daily. 2. Tramadol 50 mg p.o. daily. 3. AREDS. 4. Multivitamin 1 tab p.o. daily. 5. Claritin 10 mg p.o. daily as needed. ALLERGIES: No known drug allergies. FAMILY HISTORY: The patient's father of pulmonary fibrosis, the patient's mother of uterine cancer. The patient has a sister, who is alive and has breast cancer. SOCIAL HISTORY: The patient denies ever smoking. The patient drinks 2 beers a day. The patient denies illicit drug use. The patient is a retired professor from . The patient is and has 2 children. The patient's surrogate decision maker will be his , Rachel Malhotra. REVIEW OF SYSTEMS: A 14-point review of systems was reviewed and is negative except as above in the HPI. PHYSICAL EXAMINATION GENERAL: The patient is a 72-year-old male, who appears stated age and sitting comfortably in bed, in no acute distress. VITAL SIGNS: At the time of evaluation, temperature 99.0, pulse rate 82, respiratory rate 18, oxygen saturation 99% on room air, blood pressure 107/71. HEENT: Head: Normocephalic, atraumatic. Sclerae anicteric. No conjunctival injection. Nasal mucosa moist. Oral mucosa moist. No pharyngeal erythema, discharge, or exudate. NECK: Supple, nontender. No lymphadenopathy. No carotid bruits auscultated. No JVD. RESPIRATORY: Clear to auscultation bilaterally. No wheezes, rales, or rhonchi. Good air exchange bilaterally. CARDIAC: Regular rate and rhythm. No clicks, murmurs, gallops, or rubs. Pulses are 2+ in the bilateral dorsalis pedis, posterior tibialis, and radial areas. ABDOMEN: Soft, nontender, nondistended. Bowel sounds present and normoactive in all 4 quadrants. No hepatosplenomegaly. No abdominal bruits auscultated. No hepatojugular reflux. GENITOURINARY: No suprapubic or CVA tenderness. NEURO: Cranial nerves II through XII intact. No focal deficits. Alert and oriented x3. PSYCHIATRIC: Pleasant and cooperative. SKIN: Clean, dry, and intact. DIAGNOSTIC STUDIES/LAB DATA: White blood cell count 5.9, hemoglobin 15.5, platelet count 137,000. INR 1.06, APTT 29.8. Sodium 139, potassium 4.2, chloride 106, carbon dioxide 26, anion gap 7, BUN 18, creatinine 0.8, glucose 129, lactic acid 1.0, calcium 9.1, magnesium 1.7. Bilirubin 0.5, AST 15, ALT 14 , alkaline phosphatase 59. Ammonia 46. Troponin I 0.00. CRP 3.15. Albumin 4.0, globulin 2.4. Amylase 25, lipase 14. Studies: Abdomen and pelvis CT read as circumferential thickening of the wall of the ascending colon most consistent with colitis similar to prior study, small infrarenal abdominal aortic aneurysm measuring 2.8 cm in maximal dimension , unchanged hepatic steatosis. EKG read as normal sinus rhythm, right bundle branch block, left anterior fascicular block. No ST segment elevation or depression. Rate of 68, QTc of 441. Unchanged from previous exam. No other hypertrophy or enlargement. ASSESSMENT AND PLAN: Impression: Mr. Rodriguez is a 72-year-old male with past medical history significant for only arthritis and a recent similar episode of nausea, vomiting and diarrhea, who presented to the emergency department with several hours of nausea, vomiting, diarrhea and bloody stools, which have now resolved. The patient will be admitted to the hospital observation for monitoring, trending up of his H and H, and a gastroenterology consult with recommendation for sigmoidoscopy in the morning. 1. Hematochezia, possible colitis. The patient had several episodes of bloody bowel movements with CT evidence of colitis. Differential for this includes ischemic, infectious, or inflammatory at this time. Given the patient's second episode, inflammatory bowel disease is more likely; however, it is still less likely given the patient's age and lack of intervening symptoms and lack of other signs of systemic symptoms and normal inflammatory markers. The patient has not had any recent exposures to infectious carriers of gastroenteritis or dysentery. The patient will have a stool culture regardless. Fecal lactoferrin is pending as is blood and urine cultures. The patient will also have a C. difficile test, which has already been ordered; however, the patient has not been able to provide a bowel movement for this yet. The patient will be seen in consultation by Dr. Noe Pride of Gastroenterology with whom the case has been discussed. The patient is planned for a sigmoidoscopy in the morning and will have a clear liquid diet until that point. The patient had a colonoscopy in late 2018 and does not need a full preparation. To test for probability for ischemic colitis, we will order a lipid panel at this time. 2. Arthritis. Continue the patient's tramadol. The patient will have morphine for abdominal pain, which entirely resolved his abdominal pain while in the emergency department. 3. DVT prophylaxis: SCDs in the setting of GI bleed. 4. FEN: The patient will have a clear liquid diet and normal saline at 100 mL an hour. 5. Disposition: The patient is admitted to observation to the hospital. 6. Code status: The patient would like to be a full code. TIME SPENT: Approximately 60 minutes were spent on the admission of this patient, 30 of which was spent [id number] with the patient obtaining history and physical and discussing treatment plan. This plan was discussed with my attending, Dr. Haris Hodge, and he is in agreement. BOBBY HOWARD [id number]/CPS #: [id number] MTDD
[2018-09-18] MEDS ORDERED: Melatonin 3 MG TAB PO PRN (20:13)
[2018-09-18 20:32] LABS: Urine Appearance Clear; Urine Bacteria Absent (Absent); Urine Bilirubin Negative (Negative); Urine Blood 3+ (Negative); Urine Color Yellow; Urine Glucose Negative (Negative); Urine Ketones Negative (Negative); Urine Nitrite Negative (Negative); Urine Protein Negative (Negative); Urine Red Blood Cell 2+(6-10/hpf) (Absent); Urine Specific Gravity 1.041 (1.010-1.030); Urine Urobilinogen Negative (Negative); Urine White Blood Cell Absent (Absent)
--- NOTE | 2018-09-18 21:43 | CONS ---
GASTROENTEROLOGY CONSULT: DATE : 09/18/18 CONSULTING PHYSICIAN: Dr. Brian Dow. REASON FOR CONSULT: Crampy abdominal pain with bloody diarrhea. 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 He is treated for chronic lumbosacral back pain with a variety of through the pain clinic so that has been a constant. He takes tramadol. He is really on a minimal amount of other supplements or symptomatic remedies otherwise. Last night around 11 p.m., he had some lower abdominal discomfort and says it was difficult to pass a bowel movement, but then past midnight he had a repetitive krysta that rapidly became loose and runny, and by around 2 a.m., he noticed they were bloody. He became nauseated and vomited around 3 a.m. He was basically up all night with cramps and loose stool. Around 8 a.m., that all stopped. He went to the emergency room. There, he was noted to have stable vital signs. His blood pressure transiently up at 139/101 and then quickly falling to 80 diastoli and he looked well. His white count was normal at 5.9 (though WBCs have been generally low) and a CT scan showed a thickening of the descending colon which had been commented on before. Vascular calcification of the abdominal vessels seemed fairly low. He had had a similar episode of nocturnal distress about 3 months ago, but never had any bleeding. He was found to have gastroenteritis, but no specimen was ever cultured. He was sent home after 2 days. He had a colonoscopy in January 2018 with 3 small left colon polyps removed, all benign. A clip was placed in the sigmoid colon, where there had been a small tubular adenoma. He had had 2 prior colonoscopies performed elsewhere. PAST MEDICAL HISTORY: 1. Vasectomy. 2. Tonsillectomy. 3. Arthritis - new formal diagnosis. 4. Chronic low back pain with spinal curvature. 5. 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 Special interest is in the environmental and other history of the [facility], especially [place]. Lifelong nonsmoker. REVIEW OF SYSTEMS: No history of TIA, CVA, seizure, [place], syncope, hepatitis, jaundice, TB, or intraabdominal surgery. EXAM: He is a generally healthy-appearing older man, in no distress. He has a fair amount of actinic change to his face. He has no adenopathy. Lungs are clear. Heart sounds are regular. The abdomen is symmetric with normal bowel sounds, quite active, but nonmechanical and there is no tenderness. Rectal deferred. Extremities show no edema. Pulses are intact. IMPRESSION AND PLAN: This 72-year-old man has the abrupt onset of bloody diarrhea. He has generally not had much in the way of gastrointestinal illnesses or symptoms over the years and has had regular colonoscopies including one as recent in last January where a fair amount of diverticulosis was documented though he had never been treated for diverticulitis. All in all, he presents with typical symptoms of ischemic colitis as they occurred through the night and initial nonbloody bowel movements turned bloody. The severity appears low. The May event may have been a milder case or an infection - likely it will never be proven either way. Possible ischemic colitis is a little mysterious as he really has no risk factors other than age which makes a thrombophilic w/u low yield. Documenting this would be potentially useful and at this time, he needs no further prep and a sigmoidoscopy will be considered. [id number]/CPS #: [id number] [facility] HOSPITALGayatri
[2018-09-19] MEDS: NS 0.9% 1000 ML** 1,000 ML IV SCH (02:39)
[2018-09-19 06:10] LABS: Hematocrit 44 % (42-52); Hemoglobin 14.9 g/dL (14.0-18.0); Mean Corpuscular HGB Conc 34 g/dL (31-36); Mean Corpuscular Hemoglobin 32 pg (27-31); Mean Corpuscular Volume 94 fL (80-94); Mean Platelet Volume 6.9 fL (7.4-10.4); Platelet Count 143 10^3/uL (150-450); Red Blood Count 4.71 10^6 /uL (4.18-5.48); Red Cell Distribution Width 14 % (10.5-15)
[2018-09-19 06:31] LABS: BUN/Creatinine Ratio 14.9 (8-20); EGFR Non-African American 86.8 (>60)
[2018-09-19] MEDS: Cetirizine* 10 MG TAB PO SCH (08:10)
[2018-09-19] MEDS ORDERED: Cyanocobalamin TAB* 500 MCG PO SCH (09:00)
[2018-09-19] MEDS ORDERED: fentaNYL* 50 MCG/ML 2 ML VIAL (100 MCG VIAL) ONE (13:27)
[2018-09-19] MEDS ORDERED: Midazolam* 1 MG/ML 10 ML VIAL (10 MG) ONE (13:27)
[2018-09-19 16:19] VITALS: BP 118/69
--- NOTE | 2018-09-19 23:06 | PRO ---
CC: Brian Dow III, MD * DATE OF PROCEDURE: 09/19/18 - RoOM #[id number] PROCEDURE: Flex sig. PRIMARY CARE PROVIDER: Brian Dow III, MD INDICATIONS: The patient is a healthy gentleman who developed acute onset diarrhea beginning last night. He noticed that the diarrhea was initially nonbloody, but then became bloody. Quite a bit of blood seen in the toilet bowl , per the patient's history. Denies any other symptoms. Presented to the ER. CBC was normal. Imaging demonstrated circumferential thickening of the descending colon suspicious for colitis. Note was made of similar finding during an admission for presumed self-limited infectious colitis in May 2018. The patient states that he is doing much better today. He had one small mildly bloody bowel movement this morning. He is quite eager to go home. MEDICATIONS GIVEN: None per the patient's request. DESCRIPTION OF PROCEDURE: Full disclosure of risks was reviewed with the patient as detailed on the consent form. The patient was placed in the left lateral decubitus position and monitored with continuous pulse oximetry, capnography, interval blood pressure monitoring, and direct observation. After anorectal examination was performed, the pediatric colonoscope was inserted into the rectum and slowly advanced forward to the level of distal sigmoid. Findings and interventions are described below. FINDINGS: Anorectal exam was unremarkable. Scope was inserted into the rectum and slowly advanced forward to presumably the distal sigmoid. There was a significant amount of old dark red blood. This blood was fairly adherent to the mucosa limiting the ability to wash it off. No fresh or red blood noted. Ultimately, the decision was made to abort the procedure due to poor visibility. Scope was then withdrawn from the patient. The patient tolerated the procedure well. IMPRESSION: 1. Flexible sigmoidoscopy to distal sigmoid. 2. Significant amount of old blood seen within the examined areas of the colon. No source of bleeding identified, although this exam was quite limited due to poor visibility. FOLLOWUP: 1. I discussed the case with the patient. I would recommend that we pursue a more aggressive prep with a repeat endoscopic evaluation tomorrow. The patient is very eager to go home and does not want to stay in the hospital overnight. I reviewed the risks and benefits of having the procedure performed in the outpatient setting versus the inpatient setting. I will be able to accommodate the patient as an add-on for tomorrow morning in the outpatient setting. The patient would like to proceed with this option. If the patient develops any concerning signs or symptoms after discharge, then he is aware that he would have to return to [facility] for further evaluation and management. Procedure prep prescription and procedure packet provided to the patient. I notified the primary team. Thank you very much for this referral. [id number]/ROWENA #: [id number] APOLLO
--- NOTE | 2018-09-20 05:44 | DS ---
DISCHARGE SUMMARY: DATE OF ADMISSION: 09/18/18 DATE OF DISCHARGE: 09/19/18 ATTENDING PHYSICIAN: Dr. Haris Hodge * (dictated by BOBBY Mena). PRIMARY DIAGNOSIS: Bloody diarrhea, possible episode of ischemic colitis. SECONDARY DIAGNOSES: 1. Arthritis. 2. Chronic pain. PROCEDURES WHILE IN THE HOSPITAL: Sigmoidoscopy on 09/19/18, completed by Dr. Mckeon. PERTINENT LAB DATA: Positive lactoferrin. Hemoglobin 14.9. DISCHARGE MEDICATIONS: Bowel prep. Continued home medications: 1. Loratadine 10 mg p.o. daily. 2. Tramadol 50 mg p.o. daily. 3. Cyanocobalamin 500 mcg p.o. daily. 4. AREDS 2 tabs p.o. daily. HISTORY OF PRESENT ILLNESS/HOSPITAL COURSE: Blu Rodriguez is a 72-year-old white male with past medical history of arthritis and chronic pain who presented on 09/18/18 due to nausea, vomiting, diarrhea, and bloody stools. Please see history and physical dictated by BOBBY Pat, for further details. During his hospital stay, he had complete resolution of all symptoms and he was seen by machine tool electrician, Dr. Pride, and planned for sigmoidoscopy for 09/19/18. Sigmoidoscopy was completed by Dr. Mckeon who was unable to visualize the sigmoid other than dried blood due to incomplete bowel prep. Due to the patient's resolution of symptoms and desire to go home and stable H and H, the patient was deemed safe to go home for outpatient colonoscopy with full bowel prep tomorrow morning. The patient was provided with this information and provided the prescription by Dr. Mckeon. On date of discharge, the patient has no complaints. He had no nausea, vomiting , diarrhea, chest pain, difficulty breathing, dizziness. The patient passed one small formed stool this morning. He did note a small amount of blood on tissue paper about the size of a quarter. REVIEW OF SYSTEMS: An 11-point review of systems was completed and all pertinent positives and negatives are above in the HPI. All other systems are negative. PHYSICAL EXAMINATION: Thin white male, appearing younger than stated age, appearing in no acute distress, well developed, well nourished. Head: Normocephalic and atraumatic. Eyes: PERRL. Sclerae anicteric. ENT: Mucous membranes are moist. Cardiac: Regular rate and rhythm without murmurs, rubs, or gallops. Lungs: Clear to auscultation throughout. Abdomen: Abdomen soft, nontender, and nondistended. Normoactive bowel sounds x4 quadrant. No hepatosplenomegaly. No bruits auscultated. Extremities: No cyanosis, clubbing , or edema. Neuro: No focal deficits. The patient is alert and oriented x3. DISCHARGE PLAN: Diet: The patient is to utilize bowel prep diet, clear liquids. Activity: The patient is to return to normal activity as tolerated. The patient will return for outpatient colonoscopy at 10:[address] Garrett Garcia tomorrow. He was advised by myself and Dr. Mckeon to return to the emergency department if he experiences sudden abdominal pain, nausea, vomiting, bloody diarrhea, chest pain, difficulty breathing, dizziness, or hematochezia. Otherwise, the patient is to return to his normal home medications. Dr. Garrett Garcia will further follow up with the patient regarding management if ischemic colitis is determined. The patient will further follow up with Dr. Mckeon depending on outcome of the colonoscopy to determine if ischemic colitis is etiology of his symptomatology. CONDITION ON DISCHARGE: Stable. DISPOSITION: Home. TIME SPENT: Approximately 40 minutes was spent on this discharge, approximately half that time was spent at the bedside. BOBBY MENA [id number]/[facility] #: [id number] MTDGayatri
== END 2018-09-19 18:05 | disposition home or self-care (01) ==
LOC: ED 09:56 → INTOOBSV 16:08 → UNDOADMIN 16:08 → MEDTELE 16:08
PROVIDERS: ADMIT Internal Medicine; ATTEND Internal Medicine
DX: K92.1 Melena (principal); M19.90 Unspecified osteoarthritis, unspecified site; G89.29 Other chronic pain; Z85.828 Personal history of other malignant neoplasm of skin; K76.0 Fatty (change of) liver, not elsewhere classified; I71.4 Abdominal aortic aneurysm, without rupture; K63.89 Other specified diseases of intestine; Z79.899 Other long term (current) drug therapy
CPT/HCPCS: 36415; 74177; 80048; 80053; 80061; 81003; 81015; 82140; 82150; 82272; 83605; 83630; 83690; 83735; 84484; 85025; 85027; 85610; 85730; 86140; 86850; 86900; 86901; 87040; 87045; 87046; 87077; 87493; 87899; 93005; 96361; 96365; 96367; 96375; 99284; A9270-GY; G0378; J0744; J2250; J2270; J2405; J3010; J3475; J3490; Q9967

== ENCOUNTER 2018-09-20 06:24 | Emergency (ER) | payer MEDICARE ==
[2018-09-20] MEDS ORDERED: Morphine 4 MG/ML VIAL (1 ml) 4 MG/ML VIAL IV ONE (06:48)
[2018-09-20] MEDS ORDERED: Ondansetron INJ* 2 MG/ML VIAL IV ONE (06:48)
[2018-09-20 07:26] LABS: ABS Lymphocytes 0.6 10^3/ul (1.0-4.8); ABS Monocytes 0.3 10^3/ul (0-0.8); ABS Neutrophils 5.6 10^3/ul (1.5-7.7); Eosinophil % 0.1 %; Hematocrit 46 % (42-52); Hemoglobin 15.9 g/dL (14.0-18.0); Lymphocyte % 9.1 %; Mean Corpuscular HGB Conc 35 g/dL (31-36); Mean Corpuscular Hemoglobin 32 pg (27-31); Mean Corpuscular Volume 93 fL (80-94); Mean Platelet Volume 7.1 fL (7.4-10.4); Platelet Count 151 10^3/uL (150-450); Red Blood Count 4.95 10^6 /uL (4.18-5.48); Red Cell Distribution Width 14 % (10.5-15); White Blood Count 6.5 10^3/uL (3.5-10.8)
[2018-09-20 07:38] LABS: Albumin 4.3 g/dL (3.2-5.2); Albumin/Globulin Ratio 1.4 (1-3); BUN/Creatinine Ratio 10.7 (8-20); C Reactive Protein 5.48 mg/L (<8.01); Calcium 9.6 mg/dL (8.6-10.3); EGFR African American 109.3 (>60); EGFR Non-African American 90.3 (>60); Magnesium 1.8 mg/dL (1.9-2.7); Potassium 3.5 mmol/L (3.5-5.0); Total Bilirubin 0.6 mg/dL (0.2-1.0); Total Protein 7.3 g/dL (6.4-8.9)
[2018-09-20 08:56] VITALS: BP 118/76
--- NOTE | 2018-09-20 09:01 | ED ---
Abdominal Pain/Male - HPI Summary HPI Summary: Patient is a 72-year-old male presenting to the ED with diffuse abdominal pain. He states he did a bowel prep last night for a repeat sigmoidoscopy this morning for a possible ischemic colitis diagnosis and is endorsing nausea and abdominal pain. Sigmoidoscopy was performed last evening, however states there was too much blood in the colon to get a good visualization. He was to prep began last night. He states he got through two thirds of the bowel prep and was unable to continue due to nausea and pain. He states he has been having clear stool and denies any blood currently. Denies any rectal pain. - History of Current Complaint Chief Complaint: Pratibha Stated Complaint: "I THINK I HAVE COLITIS" PER PT Time Seen by Provider: 09/20/18 06:36 Hx Obtained From: Patient Onset/Duration: Gradual Onset Timing: Constant Severity Initially: Severe Severity Currently: Moderate Pain Intensity: 9 Pain Scale Used: 0-10 Numeric Location: Discrete At: RUQ, Discrete At: LUQ Radiates: No Character: Cramping Aggravating Factor(s): Nothing Alleviating Factor(s): Nothing Associated Signs And Symptoms: Positive: Negative - Risk Factors Testicular Torsion: Negative Cardiac Risk Factors: Negative - Allergies/Home Medications Allergies/Adverse Reactions: Allergies Allergy/AdvReac Type Severity Reaction Status Date / Time No Known Allergies Allergy Verified 09/20/18 07:31 PMH/Surg Hx/FS Hx/Imm Hx Previously Healthy: Yes Endocrine/Hematology History: Denies: Hx Diabetes Cardiovascular History: Denies: Hx Hypertension, Hx Pacemaker/ICD History: Reports: Hx Kidney Stones - september 2015 Denies: Hx Renal Disease Musculoskeletal History: Reports: Hx Arthritis, Hx Back Problems Sensory History: Reports: Hx Contacts or Glasses - glasses Denies: Hx Hearing Aid Opthamlomology History: Reports: Hx Contacts or Glasses - glasses Neurological History: Reports: Other Neuro Impairments/Disorders - PAIN CLINIC PATIENT Psychiatric History: Denies: Hx Panic Disorder - Surgical History Surgery Procedure, Year, and Place: TONSILECTOMY. VASECTOMY. PLANTAR FASCIOTOMY - Immunization History Hx Pertussis Vaccination: No Immunizations Up to Date: Yes Infectious Disease History: No Infectious Disease History: Denies: Traveled Outside the [place] in Last 30 Days - Family History Known Family History: Positive: Diabetes - COUSIN - TYPE I Negative: Cardiac Disease, Hypertension - Social History Occupation: Unemployed Lives: With Family Alcohol Use: Daily Alcohol Amount: 2 beers daily Hx Substance Use: No Substance Use Type: Reports: None Smoking Status (MU): Never Smoked Tobacco Review of Systems Constitutional: Negative Negative: Fever, Chills, Skin Diaphoresis Negative: Palpitations, Chest Pain Negative: Shortness Of Breath, Cough Positive: Abdominal Pain, Nausea. Negative: Vomiting, Diarrhea Genitourinary: Negative Positive: no symptoms reported, see HPI Negative: Arthralgia, Myalgia Neurological: Negative All Other Systems Reviewed And Are Negative: Yes Physical Exam Triage Information Reviewed: Yes Vital Signs On Initial Exam: Initial Vitals Temp Pulse Resp BP Pulse Ox 98.8 F 66 20 142/82 98 09/20/18 06:29 09/20/18 06:29 09/20/18 06:29 09/20/18 06:29 09/20/18 06:29 Vital Signs Reviewed: Yes Appearance: Positive: Well-Appearing, Well-Nourished Skin: Positive: Warm, Skin Color Reflects Adequate Perfusion Head/Face: Positive: Normal Head/Face Inspection Eyes: Positive: EOMI, Conjunctiva Clear Neck: Positive: Supple, No Lymphadenopathy Respiratory/Lung Sounds: Positive: Clear to Auscultation, Breath Sounds Present Abdomen Description: Positive: Nontender, No Organomegaly, Soft. Negative: Distended, Guarding, Hepatomegaly, Peritoneal Signs Bowel Sounds: Positive: Hyperactive Neurological: Positive: Sensory/Motor Intact Psychiatric: Positive: Normal, Affect/Mood Appropriate AVPU Assessment: Alert Diagnostics - Vital Signs Vital Signs Temp Pulse Resp BP Pulse Ox 09/20/18 08:00 64 92 09/20/18 07:27 16 09/20/18 07:00 64 98 09/20/18 06:39 62 143/80 99 09/20/18 06:38 61 99 09/20/18 06:29 98.8 F 66 20 142/82 98 - Laboratory Lab Results: Lab Results 09/20/18 09/20/18 09/20/18 Range/Units 07:07 07:07 07:07 WBC 6.5 (3.5-10.8) 10^3/uL RBC 4.95 (4.18-5.48) 10^6 /uL Hgb 15.9 (14.0-18.0) g/dL Hct 46 (42-52) % MCV 93 (80-94) fL MCH 32 H (27-31) pg MCHC 35 (31-36) g/dL RDW 14 (10.5-15) % Plt Count 151 (150-450) 10^3/uL MPV 7.1 L (7.4-10.4) fL Neut % (Auto) 85.2 % Lymph % (Auto) 9.1 % [place] % (Auto) 5.1 % Eos % (Auto) 0.1 % Baso % (Auto) 0.5 % Absolute Neuts (auto) 5.6 (1.5-7.7) 10^3/ul Absolute Lymphs (auto) 0.6 L (1.0-4.8) 10^3/ul Absolute Monos (auto) 0.3 (0-0.8) 10^3/ul Absolute Eos (auto) 0.0 (0-0.6) 10^3/ul Absolute Basos (auto) 0.0 (0-0.2) 10^3/ul Absolute Nucleated RBC 0.0 10^3/ul Nucleated RBC % 0.0 Sodium 138 (135-145) mmol/L Potassium 3.5 (3.5-5.0) mmol/L Chloride 101 (101-111) mmol/L Carbon Dioxide 27 (22-32) mmol/L Anion Gap 10 (2-11) mmol/L BUN 9 (6-24) mg/dL Creatinine 0.84 (0.67-1.17) mg/dL Est GFR ( Amer) 109.3 (>60) Est GFR (Non-Af Amer) 90.3 (>60) BUN/Creatinine Ratio 10.7 (8-20) Glucose 121 H (70-100) mg/dL Lactic Acid 1.1 (0.5-2.0) mmol/L Calcium 9.6 (8.6-10.3) mg/dL Magnesium 1.8 L (1.9-2.7) mg/dL Total Bilirubin 0.60 (0.2-1.0) mg/dL AST 14 (13-39) U/L ALT 13 (7-52) U/L Alkaline Phosphatase 62 (34-104) U/L C-Reactive Protein 5.48 (<8.01) mg/L Total Protein 7.3 (6.4-8.9) g/dL Albumin 4.3 (3.2-5.2) g/dL Globulin 3.0 (2-4) g/dL Albumin/Globulin Ratio 1.4 (1-3) Lipase 22 (11.0-82.0) U/L Result Diagrams: 09/20/18 07:07 09/20/18 07:07 Lab Statement: Any lab studies that have been ordered have been reviewed, and results considered in the medical decision making process. Abdominal Pain Male Course/Dx - Course Course Of Treatment: Creamish Patient is evaluated for diffuse abdominal pain following a bowel prep for a repeat sigmoidoscopy this morning. He states he is having mid upper abdominal pain to the RUQ and LUQ without pain to the bilateral lower quadrants. No peritoneal signs. Denies any UTI symptoms. Denies any back pain. Denies any CP or SOB. On physical examination, patient appears in pain distress and slightly diaphoretic. He is given Zofran and morphine with good relief. Pain reduced from a 9/10 to a 1/10. He denies any nausea. Labs obtained and are WNL. Chest x-ray as well as abdominal x-ray obtained to assess for a possible perforation. No perforation noted. Chest x- ray exam is clear. Patient is discharged to his appt in good condition. Dx with abdominal pain. - Diagnoses Provider Diagnoses: Abdominal pain Discharge - Sign-Out/Discharge Documenting (check all that apply): Patient Departure Patient Received Moderate/Deep Sedation with Procedure: No - Discharge Plan Condition: Stable Disposition: HOME Referrals: Brian Dwo MD [Primary Care Provider] - Additional Instructions: Please go directly to your appt - Billing Disposition and Condition Condition: STABLE Disposition: Home
== END 2018-09-20 08:55 | disposition home or self-care (01) ==
LOC: ED 06:24
DX: R10.9 Unspecified abdominal pain (principal)
CPT/HCPCS: 36415; 71046; 74019; 80053; 83605; 83690; 83735; 85025; 86140; 96374; 96375; 99282; J2270; J2405